=== PATIENT | female | born 1990 | race Caucasian/White ===

== ENCOUNTER 2017-02-01 19:15 | Emergency (ER) | payer OTHER ==
[2017-02-01 21:26] VITALS: BP 127/81
== END 2017-02-01 21:26 | disposition home or self-care (01) ==
LOC: ED 19:15
DX: S63.283A Dislocation of proximal interphalangeal joint of left middle finger, initial encounter (principal); Y04.2XXA Assault by strike against or bumped into by another person, initial encounter; Y93.89 Activity, other specified; Y92.89 Other specified places as the place of occurrence of the external cause; Y99.8 Other external cause status
CPT/HCPCS: A4570; J1885

== ENCOUNTER 2018-05-06 08:58 | Emergency (ER) | payer OTHER ==
[~2018-05-06] VITALS: Ht 162.6 cm; Wt 95.3 kg
[2018-05-06 09:03] VITALS: BP 115/75; Ht 162.6 cm; Wt 95.3 kg
== END 2018-05-06 10:07 | disposition home or self-care (01) ==
LOC: ED 08:58
DX: T16.2XXA Foreign body in left ear, initial encounter (principal); Z98.51 Tubal ligation status; W45.8XXA Other foreign body or object entering through skin, initial encounter; Y93.89 Activity, other specified; Y92.89 Other specified places as the place of occurrence of the external cause; Y99.8 Other external cause status
CPT/HCPCS: 90714; J2001